=== PATIENT | female | born 1960 | race Caucasian/White ===

== ENCOUNTER → 2016-05-02 | Outpatient (REF) | payer OTHER | LOC: M LAB REF 12:08 | PROVIDERS: ATTEND Physician Assistant Medical | DX: J02.9 Acute pharyngitis, unspecified (principal) ==

== ENCOUNTER → 2016-08-25 | Outpatient (REF) | payer OTHER ==
[2016-08-25 13:27] LABS: ALBUMIN 3.2 GM/DL (3.2-5.2); ALBUMIN/GLOBULIN RATIO 0.91 (1.00-1.93); BILIRUBIN,TOTAL 0.2 MG/DL (0.2-1.0); CALCIUM LEVEL 8.8 MG/DL (8.5-10.1); CREATININE FOR GFR 1.19 MG/DL (0.55-1.02); GLOMERULAR FILTRATION RATE 50.3 (>51); POTASSIUM SERUM 4.7 MEQ/L (3.5-5.1); TOTAL PROTEIN 6.7 GM/DL (6.4-8.2)
== END ==
LOC: M SFHCADAM 07:39
PROVIDERS: ATTEND Physician Assistant Medical
DX: E11.65 Type 2 diabetes mellitus with hyperglycemia (principal)

== ENCOUNTER → 2016-11-08 | Outpatient (REF) | payer OTHER ==
[~2016-11-08] MED LIST: ATOR40TA75 PO; CELE40TA PO; COLA100C5 PO; CRAN250C2 PO; FAMO20TA PO; FIBEPOW PO; FISH100049 PO; FOLI800C PO; GAS180CA7 PO; HYDR12.55 PO; INSUH10VL SC; IRON1TAB PO; LISI-538 PO; LORA10CA PO; METF10004 PO; TOUJ1.2I SC; VITA-182 PO; VITA100072 PO; VITA1CAP40 PO; ZOFR4TAB3 PO; [UNRECOGNIZED DRUG - CODE] PO
== END ==
LOC: M LAB REF 18:58
PROVIDERS: ATTEND Physician Assistant
DX: N39.0 Urinary tract infection, site not specified (principal)

== ENCOUNTER 2016-12-15 14:27 | Emergency (ER) | payer OTHER ==
[~2016-12-15] VITALS: Ht 167.6 cm; Wt 148.6 kg
[2016-12-15] MEDS ORDERED: VITA100072 PO (14:42)
[2016-12-15] MEDS ORDERED: GAS180CA7 PO (14:42)
[2016-12-15] MEDS ORDERED: ATOR40TA75 PO (14:42)
[2016-12-15] MEDS ORDERED: FIBEPOW PO (14:42)
[2016-12-15] MEDS ORDERED: CELE40TA PO (14:42)
[2016-12-15] MEDS ORDERED: IRON1TAB PO (14:42)
[2016-12-15] MEDS ORDERED: CRAN250C2 PO (14:42)
[2016-12-15] MEDS ORDERED: COLA100C5 PO (14:42)
[2016-12-15] MEDS ORDERED: [UNRECOGNIZED DRUG - CODE] PO (14:42)
[2016-12-15] MEDS ORDERED: HYDR12.55 PO (14:42)
[2016-12-15] MEDS ORDERED: FOLI800C PO (14:42)
[2016-12-15] MEDS ORDERED: INSUH10VL SC (14:42)
[2016-12-15] MEDS ORDERED: VITA-182 PO (14:42)
[2016-12-15] MEDS ORDERED: LISI-538 PO (14:42)
[2016-12-15] MEDS ORDERED: METF10004 PO (14:42)
[2016-12-15] MEDS ORDERED: VITA1CAP40 PO (14:42)
[2016-12-15] MEDS ORDERED: FISH100049 PO (14:42)
[2016-12-15] MEDS ORDERED: FAMO20TA PO (14:42)
[2016-12-15] MEDS ORDERED: TOUJ1.2I SC (14:42)
[2016-12-15] MEDS ORDERED: LORA10CA PO (14:42)
[2016-12-15] MEDS ORDERED: ONDANSETRON 4MG/2ML VIAL (J2405) IV ONE (15:45)
[2016-12-15] MEDS ORDERED: NS 1,000 ML IV ONE (15:45)
--- NOTE | 2016-12-15 16:13 | REP ---
Chest two views HISTORY: Abdominal pain Comparison: 04/02/2013 The lungs are clear. The heart is normal in size. The pulmonary vasculature is normal in appearance. The bony structure is intact. IMPRESSION: No acute disease. Signed by Kana Rome MD 12/15/2016 04:04 P
--- NOTE | 2016-12-15 16:17 | REP ---
CT of the abdomen pelvis without IV and oral contrast: Comparison is 07/06/2010. The visualized lung maldonado are unremarkable. The unenhanced hepatic parenchyma, gallbladder, pancreas and spleen are unremarkable. The adrenals are unremarkable. There is no hydronephrosis. No renal calculi or cysts. The study is insensitive for renal masses in the absence of IV contrast. There is no hydronephrosis or hydroureter. There are no bladder calculi. The abdominal aorta is unremarkable. There is no bowel distension or obstruction. Pelvis: The appendix has a normal appearance. The uterus and adnexa are unremarkable. There are multiple phleboliths. The bladder is unremarkable. There is no adenopathy or ascites. The pelvic bowel loops are unremarkable. There is degenerative disc disease in the lumbar spine L1-2. Impression: There is no hydronephrosis. No renal, ureteral or bladder calculi. No ascites, adenopathy or mass. There are multiple phleboliths in the pelvis. No bowel distension. Otherwise, negative CT study of the abdomen and pelvis. Sign taking Signed by Baudilio Bhakta MD 12/15/2016 04:08 P
[2016-12-15 16:33] LABS: LEFT SHIFT POS FLAG; MEAN CORPUSCULAR HEMOGLOBIN 29.2 pg (27.0-33.0); MEAN CORPUSCULAR HGB CONC 32.2 g/dl (32.0-36.5); MEAN CORPUSCULAR VOLUME 90.5 fl (80.0-96.0); RED CELL DISTRIBUTION WIDTH 14.4 % (11.5-14.5); WBC SCAT POS FLAG; WHITE BLOOD COUNT 11.5 10^3/uL (4.0-10.0)
[2016-12-15 16:53] LABS: ALBUMIN 3.2 GM/DL (3.2-5.2); ALBUMIN/GLOBULIN RATIO 0.82 (1.00-1.93); ALKALINE PHOSPHATASE 84 U/L (45-117); ALT/SGPT 87 U/L (12-78); ANION GAP 6 MEQ/L (8-16); AST/SGOT 85 U/L (15-37); BILIRUBIN,DIRECT 0.3 MG/DL (0.0-0.2); BILIRUBIN,TOTAL 0.7 MG/DL (0.2-1.0); BLOOD UREA NITROGEN 32 MG/DL (7-18); CALCIUM LEVEL 9.1 MG/DL (8.5-10.1); CARBON DIOXIDE LEVEL 26 MEQ/L (21-32); CHLORIDE LEVEL 108 MEQ/L (98-107); CREATININE FOR GFR 1.16 MG/DL (0.55-1.02); GLOMERULAR FILTRATION RATE 51.8 (>51); GLUCOSE, FASTING 192 MG/DL (70-105); POTASSIUM SERUM 4.3 MEQ/L (3.5-5.1); SODIUM LEVEL 140 MEQ/L (136-145); TOTAL PROTEIN 7.1 GM/DL (6.4-8.2)
[2016-12-15 17:00] LABS: ADD MANUAL DIFFER YES; DIFF SLIDE NUMBER 279; PLATELET COUNT, AUTOMATED 95 10^3/uL (150-450)
[2016-12-15 17:36] LABS: BANDS 31 % (< 11)
[2016-12-15 17:37] LABS: TOXIC VACUOLATION 1+
--- NOTE | 2016-12-15 18:39 | REP ---
Right upper quadrant sonography: History: Right upper quadrant pain. Comparison study: July 09, 2015. Findings: Scanning through the right upper quadrant of the abdomen demonstrates a normal sized, thin-walled gallbladder without evidence of stone or polyp. Common bile duct is normal measuring 0.6 cm in greatest diameter. No focal liver lesion is seen. Liver size is borderline, mid sagittal dimension 18 cm . There is evidence of diffuse fatty infiltration. No pancreatic abnormality is observed. No right renal abnormality is seen. There is no evidence of ascites. The right kidney measures 12.0 x 6.7 x 5.0 cm. Impression: There is evidence of fatty infiltration of the liver borderline liver size, otherwise unremarkable right upper quadrant sonography. Signed by Heriberto Montes De Oca MD 12/15/2016 06:31 P
[2016-12-15] MEDS ORDERED: ACETAMINOPHEN 325 MG TAB PO ONE (19:15)
[2016-12-15] MEDS ORDERED: ZOFR4TAB3 PO (21:35)
[2016-12-15 21:39] VITALS: BP 163/66
[2016-12-15 22:15] LABS: IMMATURE PLATELET FRACTION % 6.2 % (0.0-9.6)
[2016-12-15 22:16] LABS: PLATELET F 5.9
== END 2016-12-15 21:52 | disposition home or self-care (01) ==
LOC: M ED 14:27
DX: E86.0 Dehydration (principal); F50.9 Eating disorder, unspecified; B34.9 Viral infection, unspecified; E11.9 Type 2 diabetes mellitus without complications; K21.9 Gastro-esophageal reflux disease without esophagitis; E78.5 Hyperlipidemia, unspecified; G47.33 Obstructive sleep apnea (adult) (pediatric); D64.9 Anemia, unspecified; F41.9 Anxiety disorder, unspecified; Z87.442 Personal history of urinary calculi; Z79.84 Long term (current) use of oral hypoglycemic drugs; Z87.891 Personal history of nicotine dependence; Z88.2 Allergy status to sulfonamides; Z79.82 Long term (current) use of aspirin; Z79.4 Long term (current) use of insulin; Z79.899 Other long term (current) drug therapy
CPT/HCPCS: 71020; 74176; 76705; 80048; 80076; 81001; 83605; 83690; 85025; 85049; 85055; 86705; 86709; 86803; 87340; 96361; 96374; 99283; J2405

== ENCOUNTER → 2017-03-23 | Outpatient (REF) | payer OTHER ==
[2017-03-23 13:30] LABS: BASO % 0.5 % (0.0-1.0); EOS # 0.1 10^3/uL (0.0-0.50); EOS % 1.9 % (0.0-3.0); HEMATOCRIT 35.7 % (36.0-47.0); HEMOGLOBIN 10.9 g/dl (12.0-16.0); IMMATURE GRANULOCYTE # 0.1 10^3/uL (0-0); IMMATURE GRANULOCYTE % 0.7 % (0-0); LYMPH # 1.2 10^3/uL (1.5-4.5); LYMPH % 16.2 % (24.0-44.0); MEAN CORPUSCULAR HEMOGLOBIN 26.1 pg (27.0-33.0); MEAN CORPUSCULAR HGB CONC 30.5 g/dl (32.0-36.5); MEAN CORPUSCULAR VOLUME 85.4 fl (80.0-96.0); MONO # 0.7 10^3/uL (0.0-0.8); MONO % 8.9 % (0.0-5.0); NEUTROPHILS # 5.2 10^3/uL (1.8-7.7); NEUTROPHILS % 71.8 % (36.0-66.0); PLATELET COUNT, AUTOMATED 252 10^3/uL (150-450); RED BLOOD COUNT 4.18 10^6/uL (4.00-5.40); RED CELL DISTRIBUTION WIDTH 15.8 % (11.5-14.5); WHITE BLOOD COUNT 7.3 10^3/uL (4.0-10.0)
[2017-03-23 14:04] LABS: ALBUMIN 3.1 GM/DL (3.2-5.2); ALBUMIN/GLOBULIN RATIO 0.82 (1.00-1.93); ALKALINE PHOSPHATASE 117 U/L (45-117); ALT/SGPT 33 U/L (12-78); ANION GAP 8 MEQ/L (8-16); AST/SGOT 23 U/L (7-37); BILIRUBIN,TOTAL 0.2 MG/DL (0.2-1.0); BLOOD UREA NITROGEN 30 MG/DL (7-18); CALCIUM LEVEL 9.5 MG/DL (8.5-10.1); CARBON DIOXIDE LEVEL 26 MEQ/L (21-32); CHLORIDE LEVEL 106 MEQ/L (98-107); CHOLESTEROL LEVEL 139 MG/DL (<200); CHOLESTEROL RISK RATIO 3.657 (<5); CREATININE FOR GFR 0.93 MG/DL (0.55-1.02); FERRITIN 146 NG/ML (8-252); GLOMERULAR FILTRATION RATE > 60.0 (>51); GLUCOSE, FASTING 262 MG/DL (70-105); HDL CHOLESTEROL 38 MG/DL (>40); IRON (FE) 42 UG/DL (50-170); LDL CHOLESTEROL 52.8 MG/DL (<100); NON-HDL-C 101 MG/DL; PERCENT SATURATION 15.3 % (13.2-45.0); SODIUM LEVEL 140 MEQ/L (136-145); TOTAL IRON BINDING CAPACITY 275 UG/DL (250-450); TOTAL PROTEIN 6.9 GM/DL (6.4-8.2); TRIGLYCERIDES LEVEL 241 MG/DL (<150)
[2017-03-23 14:12] LABS: POTASSIUM SERUM 5.2 MEQ/L (3.5-5.1)
[2017-03-23 14:54] LABS: TOTAL 25(OH) VITAMIN D 37.8 NG/ML (30.0-100.0)
[2017-03-23 15:28] LABS: ESTIMATED AVERAGE GLUCOSE 266 MG/DL (60-110); HEMOGLOBIN A1c 10.9 %
[2017-03-23 21:25] LABS: CREATININE, URINE 77.5 MG/DL; MALB URINE SIEMENS 21.2 MG/L; MAU/CREAT RATIO 27.3 MCG/MG (0.0-30.0)
== END ==
LOC: M SFHCADAM 08:15
DX: I10 Essential (primary) hypertension (principal); F34.1 Dysthymic disorder; E55.9 Vitamin D deficiency, unspecified; E11.65 Type 2 diabetes mellitus with hyperglycemia; D50.9 Iron deficiency anemia, unspecified

== ENCOUNTER → 2017-09-14 | Outpatient (REF) | payer OTHER ==
[2017-09-14 15:51] LABS: BASO # 0.1 10^3/uL (0.0-0.2); BASO % 0.8 % (0.0-1.0); EOS # 0.2 10^3/uL (0.0-0.50); EOS % 2.7 % (0.0-3.0); HEMATOCRIT 35.2 % (36.0-47.0); HEMOGLOBIN 11.6 g/dl (12.0-15.5); IMMATURE GRANULOCYTE % 0.8 % (0-3.0); LYMPH # 1.9 10^3/uL (1.5-4.5); LYMPH % 30.3 % (24.0-44.0); MEAN CORPUSCULAR HEMOGLOBIN 28.5 pg (27.0-33.0); MEAN CORPUSCULAR VOLUME 86.5 fl (80.0-96.0); MONO # 0.6 10^3/uL (0.0-0.8); MONO % 10.1 % (0.0-5.0); NEUTROPHILS # 3.4 10^3/uL (1.8-7.7); NEUTROPHILS % 55.3 % (36.0-66.0); PLATELET COUNT, AUTOMATED 195 10^3/uL (150-450); RED BLOOD COUNT 4.07 10^6/uL (4.00-5.40); RED CELL DISTRIBUTION WIDTH 13.6 % (11.5-14.5); WHITE BLOOD COUNT 6.2 10^3/uL (4.0-10.0)
[2017-09-14 16:02] LABS: ALBUMIN 3.3 GM/DL (3.2-5.2); ALBUMIN/GLOBULIN RATIO 0.94 (1.00-1.93); ALKALINE PHOSPHATASE 125 U/L (45-117); ALT/SGPT 66 U/L (12-78); ANION GAP 9 MEQ/L (8-16); AST/SGOT 39 U/L (7-37); BILIRUBIN,TOTAL 0.2 MG/DL (0.2-1.0); BLOOD UREA NITROGEN 31 MG/DL (7-18); CARBON DIOXIDE LEVEL 23 MEQ/L (21-32); CHLORIDE LEVEL 112 MEQ/L (98-107); CHOLESTEROL LEVEL 128 MG/DL (<200); CREATININE FOR GFR 1.02 MG/DL (0.55-1.30); FERRITIN 131 NG/ML (8-252); GLOMERULAR FILTRATION RATE 59.9 (>51); GLUCOSE, FASTING 204 MG/DL (70-100); HDL CHOLESTEROL 40 MG/DL (>40); IRON (FE) 79 UG/DL (50-170); NON-HDL-C 88 MG/DL; PERCENT SATURATION 26.9 % (13.2-45.0); POTASSIUM SERUM 4.7 MEQ/L (3.5-5.1); SODIUM LEVEL 144 MEQ/L (136-145); TOTAL IRON BINDING CAPACITY 294 UG/DL (250-450); TOTAL PROTEIN 6.8 GM/DL (6.4-8.2); TRIGLYCERIDES LEVEL 175 MG/DL (<150)
[2017-09-14 16:09] LABS: ESTIMATED AVERAGE GLUCOSE 229 MG/DL (60-110); HEMOGLOBIN A1c 9.6 %
[2017-09-14 16:46] LABS: TOTAL 25(OH) VITAMIN D 36.3 NG/ML (30.0-100.0)
== END ==
LOC: M SFHCADAM 13:15
DX: D50.9 Iron deficiency anemia, unspecified (principal); E78.1 Pure hyperglyceridemia; E11.65 Type 2 diabetes mellitus with hyperglycemia; E55.9 Vitamin D deficiency, unspecified

== ENCOUNTER 2017-12-28 14:52 | Emergency (ER) | payer OTHER ==
[2017-12-28 15:37] LABS: BASO % 0.5 % (0.0-1.0); EOS # 0.2 10^3/uL (0.0-0.50); HEMATOCRIT 37.5 % (36.0-47.0); HEMOGLOBIN 11.9 g/dl (12.0-15.5); IMMATURE GRANULOCYTE % 0.4 % (0-3.0); LYMPH # 1.7 10^3/uL (1.5-4.5); LYMPH % 21.8 % (24.0-44.0); MEAN CORPUSCULAR HEMOGLOBIN 28.5 pg (27.0-33.0); MEAN CORPUSCULAR HGB CONC 31.7 g/dl (32.0-36.5); MEAN CORPUSCULAR VOLUME 89.9 fl (80.0-96.0); MONO # 0.6 10^3/uL (0.0-0.8); MONO % 7.2 % (0.0-5.0); NEUTROPHILS # 5.4 10^3/uL (1.8-7.7); NEUTROPHILS % 68.1 % (36.0-66.0); PLATELET COUNT, AUTOMATED 227 10^3/uL (150-450); RED BLOOD COUNT 4.17 10^6/uL (4.00-5.40); RED CELL DISTRIBUTION WIDTH 13.4 % (11.5-14.5)
[2017-12-28 15:59] LABS: ANION GAP 9 MEQ/L (8-16); BLOOD UREA NITROGEN 45 MG/DL (7-18); CALCIUM LEVEL 9.3 MG/DL (8.5-10.1); CARBON DIOXIDE LEVEL 20 MEQ/L (21-32); CHLORIDE LEVEL 112 MEQ/L (98-107); CREATININE FOR GFR 1.27 MG/DL (0.55-1.30); GLOMERULAR FILTRATION RATE 46.5 (>51); GLUCOSE, FASTING 260 MG/DL (70-100); POTASSIUM SERUM 5.3 MEQ/L (3.5-5.1); SODIUM LEVEL 141 MEQ/L (136-145)
[2017-12-28] MEDS: ONDANSETRON 4MG/2ML VIAL (J2405) IV (16:06)
[2017-12-28] MEDS: NS 1,000 ML IV (16:06)
[2017-12-28 16:15] LABS: ALKALINE PHOSPHATASE 130 U/L (45-117); ALT/SGPT 44 U/L (12-78); AST/SGOT 27 U/L (7-37); BILIRUBIN,TOTAL 0.2 MG/DL (0.2-1.0); CPK CREATINE PHOSPHOKINASE 147 U/L (26-192); MB/CK RELATIVE INDEX 1.63 (< OR =4)
[2017-12-28 16:16] LABS: ALBUMIN 3.5 GM/DL (3.2-5.2); ALBUMIN/GLOBULIN RATIO 0.88 (1.00-1.93); BILIRUBIN,DIRECT < 0.1 MG/DL (0.0-0.2); LIPASE 245 U/L (73-393); TOTAL PROTEIN 7.5 GM/DL (6.4-8.2); TROPONIN I < 0.02 NG/ML (< 0.10)
[2017-12-28 17:21] LABS: BEDSIDE GLUCOSE 213 MG/DL (70-105)
[2017-12-28] MEDS: HumuLIN R (REGULAR) INSULIN (NovoLIN R) **100U/ML** PER UNIT SC (17:21)
[2017-12-28 18:03] LABS: KETONE, URINE AUTO RFX NEGATIVE (NEGATIVE); RBC, URINE AUTO RFX 3 /HPF (0-3); SPECIFIC GRAVITY UR AUTO RFX 1.018 (1.002-1.035); SQUAM EPITHELIAL CELL UR AURFX 1 /HPF (0-6)
[2017-12-28 18:14] LABS: LEUKOCYTE ESTERASE UR AUTO RFX 1+ (NEGATIVE); NITRITE, URINE AUTO RFX POSITIVE (NEGATIVE); WBC, URINE AUTO RFX 21 /HPF (0-3)
[2017-12-28 19:05] LABS: BEDSIDE GLUCOSE 167 MG/DL (70-105)
[2017-12-28] MEDS: SOD POLYSTYRENE SULFONATE SUSP 15 GM/60 ML UD PO (19:10)
[2017-12-28] MEDS: NITROFURANTOIN (MACROBID) 100 MG CAP PO (19:10)
[2017-12-28] MEDS ORDERED: CIPROFLOXACIN 500 MG TAB PO (20:00)
== END 2017-12-28 19:17 | disposition home or self-care (01) ==
LOC: M ED 14:52
DX: R11.2 Nausea with vomiting, unspecified (principal); E86.0 Dehydration; N39.0 Urinary tract infection, site not specified; K76.0 Fatty (change of) liver, not elsewhere classified; I10 Essential (primary) hypertension; E78.00 Pure hypercholesterolemia, unspecified; G47.30 Sleep apnea, unspecified; E11.9 Type 2 diabetes mellitus without complications; Z87.440 Personal history of urinary (tract) infections; Z88.2 Allergy status to sulfonamides; Z79.899 Other long term (current) drug therapy; Z79.84 Long term (current) use of oral hypoglycemic drugs; Z79.82 Long term (current) use of aspirin
CPT/HCPCS: J2405

== ENCOUNTER → 2018-01-29 | Outpatient (REF) | payer OTHER | LOC: M LAB REF 19:56 | DX: N39.0 Urinary tract infection, site not specified (principal) ==

== ENCOUNTER → 2018-03-08 | Outpatient (REF) | payer OTHER ==
[~2018-03-08] MED LIST changes: +ASPI1TAB21 PO; +MACR100C43 PO; +TRUL0.5I; -VITA1CAP40 PO; +VITA50005 PO; +ZOFR4TAB14 PO; -ZOFR4TAB3 PO; -[UNRECOGNIZED DRUG - CODE] PO
[2018-03-08 19:41] LABS: ALBUMIN 3.6 GM/DL (3.2-5.2); BILIRUBIN,TOTAL 0.3 MG/DL (0.2-1.0); CALCIUM LEVEL 10.3 MG/DL (8.5-10.1); CHOLESTEROL RISK RATIO 3.685 (<5); CREATININE FOR GFR 1.41 MG/DL (0.55-1.30); GLOMERULAR FILTRATION RATE 41.1 (>51); MAGNESIUM LEVEL 1.3 MG/DL (1.8-2.4); POTASSIUM SERUM 4.9 MEQ/L (3.5-5.1); TOTAL PROTEIN 6.9 GM/DL (6.4-8.2)
[2018-03-08 19:48] LABS: BASO % 0.4 % (0.0-1.0); EOS # 0.2 10^3/uL (0.0-0.50); EOS % 1.9 % (0.0-3.0); HEMATOCRIT 35.5 % (36.0-47.0); HEMOGLOBIN 11.7 g/dl (12.0-15.5); LYMPH # 2.3 10^3/uL (1.5-4.5); LYMPH % 22.7 % (24.0-44.0); MEAN CORPUSCULAR HEMOGLOBIN 28.9 pg (27.0-33.0); MEAN CORPUSCULAR VOLUME 87.7 fl (80.0-96.0); MONO # 0.9 10^3/uL (0.0-0.8); MONO % 8.5 % (0.0-5.0); NEUTROPHILS # 6.6 10^3/uL (1.8-7.7); NEUTROPHILS % 66.1 % (36.0-66.0); PLATELET COUNT, AUTOMATED 211 10^3/uL (150-450); RED BLOOD COUNT 4.05 10^6/uL (4.00-5.40)
[2018-03-08 19:49] LABS: TOTAL 25(OH) VITAMIN D 23.5 NG/ML (30.0-100.0)
[2018-03-08 20:05] LABS: HEMOGLOBIN A1c 9.1 %
[2018-03-08 20:06] LABS: MALB URINE SIEMENS 25.2 MG/L; MAU/CREAT RATIO 24.2 MCG/MG (0.0-30.0)
== END ==
LOC: M SFHCADAM 13:07
PROVIDERS: ATTEND Physician Assistant Medical
DX: I10 Essential (primary) hypertension (principal); E55.9 Vitamin D deficiency, unspecified; E11.65 Type 2 diabetes mellitus with hyperglycemia; D50.9 Iron deficiency anemia, unspecified

== ENCOUNTER → 2018-04-03 | Outpatient (REF) | payer OTHER ==
[2018-04-06 17:41] LABS: HPV HYBRID CAPTURE II Negative (Negative)
== END ==
LOC: M SFHCWAGY 09:56
PROVIDERS: ATTEND Nurse Practitioner Women's Health
DX: Z12.4 Encounter for screening for malignant neoplasm of cervix (principal)

== ENCOUNTER → 2018-04-03 | Outpatient (CLI) | payer OTHER ==
--- NOTE | 2018-04-03 11:40 | REPMRS ---
Patient History The patient states she had a clinical breast exam in 03/23 Patient is postmenopausal. No known family history of cancer. 3D TOMOSYNTHESIS WAS PERFORMED. Digital Woman Screen Mammo: April 03, 2018 - Exam #: [id number] Bilateral MLO, CC, and XCCL view(s) were taken. Technologist: Irlanda Chen, Technologist Prior study comparison: December 04, 2014, digital woman screen mammo performed at [facility]. June 13, 2013, digital woman screen mammo performed at [facility]. FINDINGS: There are scattered fibroglandular densities. There has been no change in the appearance of the mammogram from the prior studies. There is a mild amount of residual fibroglandular tissue which is fairly symmetric. There is no interval development of dominant mass, architectural distortion, or clustered microcalcification suggestive of malignancy. Assessment: BI-RADS/ACR category 1 mammogram. Negative Mammogram. Recommendation Routine screening mammogram in 1 year (for women over age 40). This mammogram was interpreted with the aid of an FDA-approved computer-aided dectection system. Electronically Signed By: Baudilio Davidson MD 04/03/18 [id number]
== END ==
LOC: M WHC 09:30
PROVIDERS: ATTEND Nurse Practitioner Women's Health
DX: Z12.31 Encounter for screening mammogram for malignant neoplasm of breast (principal); Z78.0 Asymptomatic menopausal state

== ENCOUNTER → 2018-04-18 | Outpatient (REF) | payer OTHER | LOC: M SFHCADAM 08:34 | PROVIDERS: ATTEND Physician Assistant Medical | DX: E83.42 Hypomagnesemia (principal) ==

== ENCOUNTER → 2018-04-23 | Outpatient (REF) | payer OTHER ==
[2018-04-23 20:41] LABS: BASO # 0.1 10^3/uL (0.0-0.2); BASO % 0.8 % (0.0-1.0); EOS # 0.3 10^3/uL (0.0-0.50); EOS % 3.9 % (0.0-3.0); HEMATOCRIT 35.7 % (36.0-47.0); HEMOGLOBIN 11.3 g/dl (12.0-15.5); LYMPH # 2.1 10^3/uL (1.5-4.5); LYMPH % 32.2 % (24.0-44.0); MEAN CORPUSCULAR HEMOGLOBIN 28.3 pg (27.0-33.0); MEAN CORPUSCULAR HGB CONC 31.7 g/dl (32.0-36.5); MEAN CORPUSCULAR VOLUME 89.3 fl (80.0-96.0); MONO # 0.8 10^3/uL (0.0-0.8); MONO % 11.3 % (0.0-5.0); NEUTROPHILS # 3.4 10^3/uL (1.8-7.7); NEUTROPHILS % 51.3 % (36.0-66.0); PLATELET COUNT, AUTOMATED 212 10^3/uL (150-450); WHITE BLOOD COUNT 6.6 10^3/uL (4.0-10.0)
== END ==
LOC: M LABDRWAD 19:18
PROVIDERS: ATTEND Physician Assistant Medical
DX: J06.9 Acute upper respiratory infection, unspecified (principal)

== ENCOUNTER → 2018-04-30 | Outpatient (CLI) | payer OTHER ==
--- NOTE | 2018-04-30 11:15 | REP ---
Low-dose noncontrast chest CT study: History: Lung cancer screening. Findings: There is a 3 mm noncalcified nodule in the right lower lobe on page 63 of 109 in today's study. This is unchanged from December 15, 2016. There is a 4 mm noncalcified pulmonary nodule in the left upper lobe anteriorly and medially on page 49. There is a 4 mm noncalcified nodule in the left upper lobe on page 42. There is a 3 mm noncalcified nodule in the left upper lobe on page 33. There is a noncalcified 5 mm nodule in the right upper lobe on page 25. Impression: There are multiple noncalcified subcentimeter pulmonary nodules. The largest of these measures 5 mm. Lung-RADS category II benign findings. Repeat screening in 1 year. Electronically Signed by Heriberto Montes De Oca MD 04/30/2018 07:28 P
== END ==
LOC: M RAD 08:21
PROVIDERS: ATTEND Physician Assistant Medical
DX: Z12.2 Encounter for screening for malignant neoplasm of respiratory organs (principal); F17.211 Nicotine dependence, cigarettes, in remission; R91.8 Other nonspecific abnormal finding of lung field

== ENCOUNTER → 2018-05-06 | Outpatient (CLI) | payer OTHER ==
--- NOTE | 2018-05-06 20:30 | REP ---
Clinical: Stage III chronic renal disease. Technique: Real time mcdowell scale with a curved array of. Findings: The bilateral kidneys are normal in reniform shape and echogenicity without hydronephrosis, nephrolithiasis, cystic or renal mass lesion. No perinephric fluid collection. Right kidney measures 9.4 x 6.1 x 5.4 cm. Left kidney measures 12.0 x 6.1 x 5.5 cm with suggestions for duplicated system. The bladder is collapsed. Impression: No evidence for hydronephrosis. 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 Electronically Signed by Marcos Wei MD 05/06/2018 08:22 P
== END ==
LOC: M RAD 12:05
PROVIDERS: ATTEND Physician Assistant Medical
DX: N18.3 Chronic kidney disease, stage 3 (moderate) (principal)

== ENCOUNTER → 2018-05-09 | Outpatient (REF) | payer OTHER | LOC: M SFHCADAM 08:32 | PROVIDERS: ATTEND Physician Assistant Medical | DX: E83.42 Hypomagnesemia (principal) ==

== ENCOUNTER → 2018-06-17 | Outpatient (REF) | payer OTHER ==
[~2018-06-17] MED LIST changes: +VITA100018 PO; -VITA100072 PO
== END ==
LOC: M LAB REF 12:18
PROVIDERS: ATTEND Physician Assistant
DX: R30.0 Dysuria (principal)

== ENCOUNTER → 2019-04-28 | Outpatient (CLI) | payer OTHER ==
[~2019-04-28] MED LIST changes: -ASPI1TAB21 PO; +ASPI325T58 PO; +DEXT350P PO; -FIBEPOW PO
--- NOTE | 2019-04-28 12:47 | REP ---
BILATERAL SCREENING DIGITAL MAMMOGRAM WITH 3D TOMOSYNTHESIS: There are no palpable abnormalities or other breast complaints. The the patient states she had a clinical breast examination April,. The Tyrer-Cuzick Lifetime Breast Cancer Risk Score is: 6.1% . Comparison is 12/14/2014. There are scattered areas of fibroglandular density. There is no dominant mass, micro calcific cluster or architectural distortion that would indicate malignancy. There are no additional findings on 3D tomosynthesiss. There is no change from the prior study. Impression: BIRADS/ACR category 1 mammogram. Negative. Recommendation: Routine annual screening mammography. This mammogram was interpreted with the aid of a FDA approved computer-aided detection system. A. Negative mammogram reports should not delay biopsy if a dominant or clinically suspicious mass is present. B. Not all breast cancers are identified by mammography or tomosynthesis. C. Adenosis and dense breasts may obscure an underlying neoplasm. Patient letter M1. Electronically Signed by Baudilio Bhakta MD 04/28/2019 12:39 P
== END ==
LOC: M WHC 10:33
PROVIDERS: ATTEND Nurse Practitioner Women's Health
DX: Z12.31 Encounter for screening mammogram for malignant neoplasm of breast (principal)

== ENCOUNTER → 2020-02-19 | Outpatient (REF) | payer OTHER ==
[2020-02-19 13:52] LABS: BASO % 0.7 % (0.0-1.0); EOS # 0.1 10^3/uL (0.0-0.5); EOS % 2.4 % (0.0-3.0); HEMATOCRIT 37.1 % (36.0-47.0); HEMOGLOBIN 11.4 g/dl (12.0-15.5); LYMPH # 1.7 10^3/uL (1.5-5.0); LYMPH % 28.9 % (24.0-44.0); MEAN CORPUSCULAR HEMOGLOBIN 27.5 pg (27.0-33.0); MEAN CORPUSCULAR HGB CONC 30.7 g/dl (32.0-36.5); MEAN CORPUSCULAR VOLUME 89.6 fl (80.0-96.0); MONO # 0.6 10^3/uL (0.0-0.8); MONO % 10.6 % (0.0-5.0); NEUTROPHILS # 3.3 10^3/uL (1.5-8.5); NEUTROPHILS % 56.1 % (36.0-66.0); PLATELET COUNT, AUTOMATED 156 10^3/uL (150-450); RED BLOOD COUNT 4.14 10^6/uL (4.00-5.40)
[2020-02-19 14:29] LABS: ALBUMIN 3.2 GM/DL (3.2-5.2); BILIRUBIN,TOTAL 0.3 MG/DL (0.2-1.0); CALCIUM LEVEL 9.8 MG/DL (8.5-10.1); CREATININE FOR GFR 1.16 MG/DL (0.55-1.30); FREE T4 1.01 NG/DL (0.76-1.46); GLOMERULAR FILTRATION RATE 51.1 (>51); PERCENT SATURATION 29.2 % (13.2-45.0); POTASSIUM SERUM 4.7 MEQ/L (3.5-5.1); THYROID STIMULATING HORMONE 5.85 uIU/ML (0.358-3.740); TOTAL PROTEIN 6.4 GM/DL (6.4-8.2)
[2020-02-19 14:32] LABS: TOTAL 25(OH) VITAMIN D 23.1 NG/ML (30.0-100.0)
[2020-02-19 15:30] LABS: HEMOGLOBIN A1c 9.5 %
[2020-02-19 19:11] LABS: MALB URINE SIEMENS 91.2 MG/L; MAU/CREAT RATIO 66.5 MCG/MG (0.0-30.0)
== END ==
LOC: M SFHCPLAZ 09:22 → M SFHCADAM 09:28
PROVIDERS: ATTEND Physician Assistant Medical
DX: E11.65 Type 2 diabetes mellitus with hyperglycemia (principal); I10 Essential (primary) hypertension; E78.1 Pure hyperglyceridemia; D50.9 Iron deficiency anemia, unspecified

== ENCOUNTER → 2020-02-19 | Outpatient (REF) | payer OTHER ==
[2020-02-19 14:56] LABS: ALBUMIN 3.2 GM/DL (3.2-5.2); BILIRUBIN,TOTAL 0.2 MG/DL (0.2-1.0); CALCIUM LEVEL 9.6 MG/DL (8.5-10.1); CHOLESTEROL RISK RATIO 3.324 (<5); CREATININE FOR GFR 1.17 MG/DL (0.55-1.30); FREE T4 0.97 NG/DL (0.76-1.46); GLOMERULAR FILTRATION RATE 50.6 (>51); POTASSIUM SERUM 4.7 MEQ/L (3.5-5.1); THYROID STIMULATING HORMONE 5.75 uIU/ML (0.358-3.740); TOTAL PROTEIN 6.6 GM/DL (6.4-8.2)
[2020-02-19 15:05] LABS: TOTAL 25(OH) VITAMIN D 21.3 NG/ML (30.0-100.0)
[2020-02-19 16:30] LABS: HEMOGLOBIN A1c 9.5 %
[2020-02-19 19:10] LABS: MALB URINE SIEMENS 93.1 MG/L; MAU/CREAT RATIO 66.9 MCG/MG (0.0-30.0)
[2020-02-20 07:08] LABS: LDL DIRECT 52 mg/dL (0-99)
== END ==
LOC: M LABDRWAD 13:20
PROVIDERS: ATTEND Nurse Practitioner Family
DX: E55.9 Vitamin D deficiency, unspecified (principal); E11.65 Type 2 diabetes mellitus with hyperglycemia; Z79.4 Long term (current) use of insulin

== ENCOUNTER → 2020-03-30 | Outpatient (CLI) | payer MEDICAID, OTHER ==
[~2020-03-30] MED LIST changes: -LISI-538 PO; +LISI20TA33 PO
--- NOTE | 2020-03-31 10:20 | REP ---
INDICATION: HX NICOTINE DEPENDENCE COMPARISON: 04/30/2018 TECHNIQUE: Axial noncontrast images from the thoracic inlet to the upper abdomen using low-dose lung screening technique (LDCT). FINDINGS: Bilateral lung maldonado are well aerated. The few previously identified noncalcified nodules measuring up to 5 mm either remains stable or now demonstrates small central calcification. No new suspicious nodule or mass lesion appreciated. No consolidation. No effusion. No pneumothorax. Tracheobronchial tree is patent. IMPRESSION: Lung-RADS category 2. Stable scattered nodules up to 5 mm again noted. No new suspicious nodules identified. Management recommendations include annual low-dose CT surveillance. <Electronically signed by Marcos Wei > 03/31/20 [id number]
== END ==
LOC: M RAD 13:02
PROVIDERS: ATTEND Physician Assistant Medical
DX: Z12.2 Encounter for screening for malignant neoplasm of respiratory organs (principal); R91.1 Solitary pulmonary nodule; Z87.891 Personal history of nicotine dependence

== ENCOUNTER → 2020-06-01 | Outpatient (CLI) | payer MEDICAID, OTHER ==
--- NOTE | 2020-06-01 13:38 | REPMRS ---
Patient History The patient states she has not had a clinical breast exam in over a year. No known family history of cancer. Digital Woman Screen Mammo: June 01, 2020 - Exam #: [id number] Bilateral CC and MLO view(s) were taken. Technologist: Izabela Null, Technologist Prior study comparison: April 28, 2019, bilateral digital woman screen mammo performed at [facility]. April 03, 2018, bilateral digital woman screen mammo performed at [facility]. December 04, 2014, digital woman screen mammo performed at [facility]. FINDINGS: The breast tissue is almost entirely fat. The Volpara volumetric breast density category is: A. There has been no change in the appearance of the mammogram from the prior studies. There is no interval development of dominant mass, architectural distortion, or grouped microcalcification typical of malignancy. 3-D tomosynthesis shows no additional findings. Assessment: BI-RADS/ACR category 1 mammogram. Negative Mammogram. Recommendation Routine screening mammogram of both breasts in 1 year (for women over age 40). This patient's [facility] Lifetime Breast Cancer RIsk is estimated at 5.9 %. This mammogram was interpreted with the aid of an FDA-approved computer-aided dectection system. Electronically Signed By: Sukh Montes De Oca MD 06/01/20 1805
== END ==
LOC: M WHC 11:19
PROVIDERS: ATTEND Nurse Practitioner Women's Health
DX: Z12.31 Encounter for screening mammogram for malignant neoplasm of breast (principal)

== ENCOUNTER → 2020-07-07 | Outpatient (REF) | payer OTHER ==
[2020-07-07 12:35] LABS: BASO # 0.1 10^3/uL (0.0-0.2); BASO % 0.7 % (0.0-1.0); EOS # 0.2 10^3/uL (0.0-0.5); EOS % 2.8 % (0.0-3.0); HEMATOCRIT 35.6 % (36.0-47.0); LYMPH # 1.5 10^3/uL (1.5-5.0); LYMPH % 21.9 % (24.0-44.0); MEAN CORPUSCULAR HEMOGLOBIN 28.3 pg (27.0-33.0); MEAN CORPUSCULAR HGB CONC 30.9 g/dl (32.0-36.5); MEAN CORPUSCULAR VOLUME 91.5 fl (80.0-96.0); MONO # 0.5 10^3/uL (0.0-0.8); MONO % 7.7 % (2.0-8.0); NEUTROPHILS # 4.7 10^3/uL (1.5-8.5); NEUTROPHILS % 66.2 % (36.0-66.0); PLATELET COUNT, AUTOMATED 173 10^3/uL (150-450); RED BLOOD COUNT 3.89 10^6/uL (4.00-5.40)
[2020-07-07 13:04] LABS: HEMOGLOBIN A1c 8.1 %
[2020-07-07 13:15] LABS: ALBUMIN 3.3 GM/DL (3.2-5.2); BILIRUBIN,TOTAL 0.2 MG/DL (0.2-1.0); CALCIUM LEVEL 9.7 MG/DL (8.5-10.1); CHOLESTEROL RISK RATIO 3.075 (<5); CREATININE FOR GFR 1.21 MG/DL (0.55-1.30); FREE T4 1.03 NG/DL (0.76-1.46); GLOMERULAR FILTRATION RATE 48.7 (>51); PERCENT SATURATION 20.9 % (13.2-45.0); POTASSIUM SERUM 5.1 MEQ/L (3.5-5.1); THYROID STIMULATING HORMONE 1.78 uIU/ML (0.358-3.740); TOTAL 25(OH) VITAMIN D 33.7 NG/ML (30.0-100.0); TOTAL PROTEIN 6.6 GM/DL (6.4-8.2)
== END ==
LOC: M SFHCADAM 08:26
PROVIDERS: ATTEND Physician Assistant Medical
DX: I10 Essential (primary) hypertension (principal); E11.65 Type 2 diabetes mellitus with hyperglycemia; E55.9 Vitamin D deficiency, unspecified; F34.1 Dysthymic disorder; D50.9 Iron deficiency anemia, unspecified; E03.9 Hypothyroidism, unspecified

== ENCOUNTER → 2020-12-23 | Outpatient (REF) | payer OTHER ==
[2020-12-23 14:18] LABS: MALB URINE SIEMENS 25.6 MG/L; MAU/CREAT RATIO 22.8 MCG/MG (0.0-30.0)
[2020-12-23 14:33] LABS: ALBUMIN 3.3 GM/DL (3.2-5.2); ALT/SGPT 47 U/L (12-78); BILIRUBIN,TOTAL 0.6 MG/DL (0.2-1.0); BLOOD UREA NITROGEN 33 MG/DL (7-18); CALCIUM LEVEL 9.2 MG/DL (8.5-10.1); CARBON DIOXIDE LEVEL 25 MEQ/L (21-32); CHLORIDE LEVEL 108 MEQ/L (98-107); FREE T4 0.99 NG/DL (0.76-1.46); GLOMERULAR FILTRATION RATE 44.8 (>51); GLUCOSE, FASTING 202 MG/DL (70-100); POTASSIUM SERUM 5.2 MEQ/L (3.5-5.1); SODIUM LEVEL 140 MEQ/L (136-145); THYROID PEROXIDASE ANTIBODY < 28.0 U/ML (<60.0); TOTAL 25(OH) VITAMIN D 32.9 NG/ML (30.0-100.0); TOTAL PROTEIN 6.6 GM/DL (6.4-8.2); TOTAL T3 101.4 NG/DL (60.0-181.0); VITAMIN B12 LEVEL > 2000 PG/ML (247-911)
[2020-12-23 14:36] LABS: HEMOGLOBIN A1c 7.9 %
[2020-12-24 08:12] LABS: LDL DIRECT 54 mg/dL (0-99)
== END ==
LOC: M LABDRWAD 12:40
PROVIDERS: ATTEND Internal Medicine Endocrinology, Diabetes & Metabolism
DX: E11.69 Type 2 diabetes mellitus with other specified complication (principal); E66.9 Obesity, unspecified; E55.9 Vitamin D deficiency, unspecified

== ENCOUNTER → 2020-12-31 | Outpatient (CLI) | payer OTHER ==
--- NOTE | 2020-12-31 11:23 | REP ---
INDICATION: FATTY LIVER DZ. COMPARISON: 12/28/2017. TECHNIQUE: Real-time sonographic evaluation of right upper quadrant performed. FINDINGS: The gallbladder demonstrates no evidence of intraluminal sludge or calculi, wall thickening or pericholecystic fluid. There is no intrahepatic or extrahepatic biliary dilatation, common bile duct measures 3 mm in maximum diameter. The liver is enlarged with a length of approximately 22 cm. There is diffuse increased echotexture compatible with diffuse fibrofatty infiltration. No gross liver mass is seen. Pancreas is not seen due to overlying bowel gas. The right kidney demonstrates no hydronephrosis, with a normal size of 10.6 cm in length. No free fluid is seen. IMPRESSION: Hepatomegaly with diffuse fibrofatty infiltration of the liver. No gross liver mass. <Electronically signed by Baudilio Davidson > 12/31/20 1110
== END ==
LOC: M RAD 07:39
PROVIDERS: ATTEND Physician Assistant Medical
DX: K76.0 Fatty (change of) liver, not elsewhere classified (principal); R16.0 Hepatomegaly, not elsewhere classified

== ENCOUNTER → 2021-04-25 | Outpatient (CLI) | payer OTHER | LOC: M RAD 10:47 | PROVIDERS: ATTEND Physician Assistant Medical | DX: Z12.2 Encounter for screening for malignant neoplasm of respiratory organs (principal); R91.8 Other nonspecific abnormal finding of lung field; J84.9 Interstitial pulmonary disease, unspecified; F17.200 Nicotine dependence, unspecified, uncomplicated; I25.10 Atherosclerotic heart disease of native coronary artery without angina pectoris ==

== ENCOUNTER → 2021-05-09 | Outpatient (REF) | payer OTHER | LOC: M SFHCADAM 16:20 | PROVIDERS: ATTEND Physician Assistant Medical | DX: R50.9 Fever, unspecified (principal); R09.89 Other specified symptoms and signs involving the circulatory and respiratory systems ==

== ENCOUNTER → 2021-06-20 | Outpatient (REF) | payer OTHER ==
[2021-06-20 12:53] LABS: BASO # 0.1 10^3/uL (0.0-0.2); BASO % 0.9 % (0.0-1.0); EOS # 0.2 10^3/uL (0.0-0.5); EOS % 2.4 % (0.0-3.0); HEMATOCRIT 34.4 % (36.0-47.0); HEMOGLOBIN 10.7 g/dl (12.0-15.5); LYMPH # 1.9 10^3/uL (1.5-5.0); LYMPH % 21.4 % (24.0-44.0); MEAN CORPUSCULAR HEMOGLOBIN 28.9 pg (27.0-33.0); MEAN CORPUSCULAR HGB CONC 31.1 g/dl (32.0-36.5); MONO # 0.7 10^3/uL (0.0-0.8); MONO % 8.3 % (2.0-8.0); NEUTROPHILS # 5.7 10^3/uL (1.5-8.5); NEUTROPHILS % 64.7 % (36.0-66.0); PLATELET COUNT, AUTOMATED 181 10^3/uL (150-450); WHITE BLOOD COUNT 8.8 10^3/uL (4.0-10.0)
[2021-06-20 13:18] LABS: HEMOGLOBIN A1c 7.9 %
[2021-06-20 13:20] LABS: ALBUMIN 3.3 GM/DL (3.2-5.2); BILIRUBIN,TOTAL 0.2 MG/DL (0.2-1.0); CALCIUM LEVEL 9.4 MG/DL (8.5-10.1); CHOLESTEROL RISK RATIO 3.1 (<5); CREATININE FOR GFR 1.03 MG/DL (0.55-1.30); GLOMERULAR FILTRATION RATE 58.4 (>51); PERCENT SATURATION 24.1 % (13.2-45.0); POTASSIUM SERUM 5.5 MEQ/L (3.5-5.1); THYROID STIMULATING HORMONE 2.5 uIU/ML (0.358-3.740); TOTAL PROTEIN 6.4 GM/DL (6.4-8.2)
[2021-06-20 13:22] LABS: TOTAL 25(OH) VITAMIN D 24.2 NG/ML (30.0-100.0)
[2021-06-20 13:23] LABS: FOLATE 18.5 NG/ML
== END ==
LOC: M SFHCADAM 08:34
PROVIDERS: ATTEND Physician Assistant Medical
DX: E66.01 Morbid (severe) obesity due to excess calories (principal); E11.65 Type 2 diabetes mellitus with hyperglycemia; E78.1 Pure hyperglyceridemia; D50.9 Iron deficiency anemia, unspecified

== ENCOUNTER → 2021-10-28 | Outpatient (CLI) | payer OTHER | LOC: M ADAMS 08:55 | PROVIDERS: ATTEND Physician Assistant Medical | DX: E66.01 Morbid (severe) obesity due to excess calories (principal); E11.65 Type 2 diabetes mellitus with hyperglycemia; E78.1 Pure hyperglyceridemia; D50.9 Iron deficiency anemia, unspecified ==

== ENCOUNTER → 2021-11-09 | Outpatient (REF) | payer OTHER | LOC: M SFHCADAM 08:54 | PROVIDERS: ATTEND Physician Assistant Medical | DX: M35.3 Polymyalgia rheumatica (principal) ==

== ENCOUNTER → 2021-12-23 | Outpatient (REF) | payer OTHER | LOC: M SFHCADAM 07:56 | PROVIDERS: ATTEND Physician Assistant Medical | DX: M35.3 Polymyalgia rheumatica (principal) ==

== ENCOUNTER → 2022-01-19 | Outpatient (REF) | payer OTHER ==
[2022-01-19 20:56] LABS: APPEARANCE, URINE MANUAL CLOUDY (CLEAR); BILIRUBIN, URINE MANUAL NEGATIVE (NEGATIVE); COLOR, URINE MANUAL YELLOW (YELLOW); GLUCOSE, URINE (UA) MANUAL NEGATIVE (NEGATIVE); KETONE, URINE MANUAL NEGATIVE (NEGATIVE); LEUKOCYTE ESTERASE, URINE MAN POSITIVE (NEGATIVE); NITRITE, URINE MANUAL POSITIVE (NEGATIVE); PROTEIN, URINE MANUAL TRACE mg/dL (NEGATIVE); UROBILINOGEN, URINE MANUAL NORMAL (NORMAL)
[2022-01-19 20:57] LABS: BLOOD URINE MANUAL NEGATIVE (NEGATIVE)
[2022-01-19 21:14] LABS: BACTERIA, URINE LARGE AMOUNT; HYALINE CAST, URINE NONE SEEN /lpf (0-1); RBC, URINE 0-1 /hpf (0-3); SQUAMOUS EPITHELIAL CELL URINE SMALL AMOUNT /hpf (SMALL AMT); WBC, URINE TNTC /hpf (0-3)
== END ==
LOC: M SFHCADAM 13:22
PROVIDERS: ATTEND Physician Assistant Medical
DX: M35.3 Polymyalgia rheumatica (principal); R30.0 Dysuria

== ENCOUNTER → 2022-02-10 | Outpatient (REF) | payer OTHER ==
[2022-02-10 13:33] LABS: C REACTIVE PROTEIN QUANTITATIV 0.4 MG/DL (<1.0)
[2022-02-10 13:34] LABS: FERRITIN 122.4 NG/ML (7.3-270.7)
== END ==
LOC: M SFHCADAM 08:03
PROVIDERS: ATTEND Physician Assistant Medical
DX: E11.65 Type 2 diabetes mellitus with hyperglycemia (principal); E55.9 Vitamin D deficiency, unspecified; E78.1 Pure hyperglyceridemia; D50.9 Iron deficiency anemia, unspecified; M35.3 Polymyalgia rheumatica

== ENCOUNTER → 2022-05-03 | Outpatient (REF) | payer OTHER ==
[2022-05-03 14:28] LABS: BASO # 0.1 10^3/uL (0.0-0.2); BASO % 1.2 % (0.0-1.0); EOS # 0.2 10^3/uL (0.0-0.5); EOS % 3.4 % (0.0-3.0); HEMATOCRIT 34.5 % (36.0-47.0); HEMOGLOBIN 10.5 g/dl (12.0-15.5); LYMPH # 1.8 10^3/uL (1.5-5.0); LYMPH % 32.2 % (24.0-44.0); MEAN CORPUSCULAR HEMOGLOBIN 28.3 pg (27.0-33.0); MEAN CORPUSCULAR HGB CONC 30.4 g/dl (32.0-36.5); MONO # 0.5 10^3/uL (0.0-0.8); NEUTROPHILS % 53.5 % (36.0-66.0); PLATELET COUNT, AUTOMATED 223 10^3/uL (150-450); RED BLOOD COUNT 3.71 10^6/uL (4.00-5.40); WHITE BLOOD COUNT 5.7 10^3/uL (4.0-10.0)
[2022-05-03 14:31] LABS: HEMOGLOBIN A1c 8.4 % (4.0-6.0)
[2022-05-03 14:47] LABS: CREATININE, URINE 103.5 MG/DL; MAU/CREAT RATIO 9.6 MCG/MG (0.0-30.0)
[2022-05-03 14:48] LABS: PERCENT SATURATION 22.5 % (13.2-45.0)
[2022-05-03 14:52] LABS: ALBUMIN 3.3 G/DL (3.2-5.2); BILIRUBIN,TOTAL 0.2 MG/DL (0.3-1.2); CALCIUM LEVEL 10.5 MG/DL (8.3-10.6); CHOLESTEROL RISK RATIO 4.3 (<5); CREATININE FOR GFR 1.24 MG/DL (0.55-1.30); FOLATE 14.8 NG/ML (>5.4); HDL CHOLESTEROL 29.7 MG/DL (>40); LDL CHOLESTEROL 40.3 MG/DL (<100); POTASSIUM SERUM 5.4 MMOL/L (3.5-5.1); THYROID STIMULATING HORMONE 2.3 uIU/ML (0.55-4.78); TOTAL PROTEIN 6.5 G/DL (5.7-8.2)
== END ==
LOC: M SFHCADAM 08:29
PROVIDERS: ATTEND Physician Assistant Medical
DX: E11.65 Type 2 diabetes mellitus with hyperglycemia (principal); E55.9 Vitamin D deficiency, unspecified; E78.1 Pure hyperglyceridemia; D50.9 Iron deficiency anemia, unspecified

== ENCOUNTER → 2022-05-10 | Outpatient (CLI) | payer OTHER | LOC: M ADAMS 08:39 | PROVIDERS: ATTEND Physician Assistant Medical | DX: M54.2 Cervicalgia (principal); R20.2 Paresthesia of skin ==

== ENCOUNTER → 2022-05-31 | Outpatient (CLI) | payer OTHER | LOC: M RAD 08:08 | PROVIDERS: ATTEND Physician Assistant Medical | DX: K76.0 Fatty (change of) liver, not elsewhere classified (principal); R16.0 Hepatomegaly, not elsewhere classified ==

== ENCOUNTER → 2022-06-06 | Outpatient (CLI) | payer OTHER | LOC: M RAD 08:20 | PROVIDERS: ATTEND Physician Assistant Medical | DX: Z12.2 Encounter for screening for malignant neoplasm of respiratory organs (principal); F17.211 Nicotine dependence, cigarettes, in remission; R91.8 Other nonspecific abnormal finding of lung field ==

== ENCOUNTER → 2022-07-10 | Outpatient (REF) | payer OTHER | LOC: M SFHCWAGY 10:27 | PROVIDERS: ATTEND Nurse Practitioner Family | DX: Z12.4 Encounter for screening for malignant neoplasm of cervix (principal) | CPT/HCPCS: 87624; G0123 ==

== ENCOUNTER → 2022-07-10 | Outpatient (CLI) | payer OTHER | LOC: M WHC 07:12 | PROVIDERS: ATTEND Nurse Practitioner Family | DX: Z12.31 Encounter for screening mammogram for malignant neoplasm of breast (principal) ==

== ENCOUNTER 2022-10-05 16:12 | Emergency (ER) | payer OTHER ==
[~2022-10-05] VITALS: Ht 167.6 cm; Wt 143.1 kg
[2022-10-05] MEDS ORDERED: KETOROLAC 60MG 2ML VIAL IM ONE (20:50)
[2022-10-05] MEDS ORDERED: LIDOCAINE 5% (LIDODERM) PATCH TD ONE (20:50)
[2022-10-05 22:53] VITALS: BP 143/71; TEMP 97.9; O2SAT 99
[2022-10-05] MEDS ORDERED: ASPE4PAD TOP (22:58)
[2022-10-05] MEDS ORDERED: METH-1165 PO (22:58)
[2022-10-05] MEDS ORDERED: MENT118S2 TP (22:58)
[2022-10-05] MEDS ORDERED: methocarbamoL 750 MG TAB PO ONE (23:05)
== END 2022-10-05 23:05 | disposition home or self-care (01) ==
LOC: M ED 16:12
DX: M25.511 Pain in right shoulder (principal); M54.9 Dorsalgia, unspecified; E11.9 Type 2 diabetes mellitus without complications; G47.33 Obstructive sleep apnea (adult) (pediatric); Z79.82 Long term (current) use of aspirin; Z79.4 Long term (current) use of insulin; Z79.899 Other long term (current) drug therapy; Z88.2 Allergy status to sulfonamides
CPT/HCPCS: 73030; 93971; 96372; 99283; J1885

== ENCOUNTER → 2022-10-09 | Outpatient (CLI) | payer OTHER ==
[~2022-10-09] MED LIST changes: +ASPE4PAD TOP; +MENT118S2 TP; +METH-1165 PO
== END ==
LOC: M PLAIMG 14:07
PROVIDERS: ATTEND Physician Assistant Medical
DX: M54.2 Cervicalgia (principal); M47.812 Spondylosis without myelopathy or radiculopathy, cervical region

== ENCOUNTER → 2022-11-03 | Outpatient (CLI) | payer OTHER ==
[2022-11-03 18:14] LABS: BASO # 0.1 10^3/uL (0.0-0.2); BASO % 1.1 % (0.0-1.0); EOS # 0.2 10^3/uL (0.0-0.5); EOS % 3.2 % (0.0-3.0); HEMATOCRIT 34.3 % (36.0-47.0); HEMOGLOBIN 10.4 g/dl (12.0-15.5); LYMPH # 1.4 10^3/uL (1.5-5.0); LYMPH % 26.2 % (24.0-44.0); MEAN CORPUSCULAR HEMOGLOBIN 28.5 pg (27.0-33.0); MEAN CORPUSCULAR HGB CONC 30.3 g/dl (32.0-36.5); MONO # 0.5 10^3/uL (0.0-0.8); MONO % 9.1 % (2.0-8.0); NEUTROPHILS # 3.2 10^3/uL (1.5-8.5); NEUTROPHILS % 59.5 % (36.0-66.0); PLATELET COUNT, AUTOMATED 181 10^3/uL (150-450); RED BLOOD COUNT 3.65 10^6/uL (4.00-5.40); WHITE BLOOD COUNT 5.3 10^3/uL (4.0-10.0)
[2022-11-03 18:19] LABS: HEMOGLOBIN A1c 12.2 % (4.0-6.0)
[2022-11-03 18:35] LABS: CREATININE, URINE 57.2 MG/DL; MAU/CREAT RATIO 85.6 MCG/MG (0.0-30.0)
[2022-11-03 18:40] LABS: THYROID STIMULATING HORMONE 1.421 uIU/ML (0.55-4.78)
[2022-11-03 18:41] LABS: TOTAL 25(OH) VITAMIN D 22.4 NG/ML (20.0-100.0)
[2022-11-03 18:44] LABS: ALBUMIN 3.2 G/DL (3.2-5.2); BILIRUBIN,TOTAL 0.2 MG/DL (0.3-1.2); CALCIUM LEVEL 9.8 MG/DL (8.3-10.6); CHOLESTEROL RISK RATIO 3.78 (<5); CREATININE FOR GFR 1.1 MG/DL (0.55-1.30); GLOMERULAR FILTRATION RATE 53.9 (>45); HDL CHOLESTEROL 39.6 MG/DL (>40); LDL CHOLESTEROL 45.2 MG/DL (<100); NON-HDL-C 110.4 MG/DL; POTASSIUM SERUM 5.5 MMOL/L (3.5-5.1); TOTAL PROTEIN 6.4 G/DL (5.7-8.2)
== END ==
LOC: M WUC 12:04
PROVIDERS: ATTEND Physician Assistant Medical
DX: E11.65 Type 2 diabetes mellitus with hyperglycemia (principal); D50.9 Iron deficiency anemia, unspecified; K76.0 Fatty (change of) liver, not elsewhere classified; E66.01 Morbid (severe) obesity due to excess calories; E55.9 Vitamin D deficiency, unspecified; E78.1 Pure hyperglyceridemia; Z68.43 Body mass index [BMI] 50.0-59.9, adult

== ENCOUNTER → 2022-12-09 | Outpatient (CLI) | payer OTHER | LOC: M RAD 08:29 | PROVIDERS: ATTEND Physician Assistant | DX: M50.122 Cervical disc disorder at C5-C6 level with radiculopathy (principal); M48.02 Spinal stenosis, cervical region; M50.13 Cervical disc disorder with radiculopathy, cervicothoracic region ==

== ENCOUNTER 2023-01-28 13:05 | Emergency (ER) | payer OTHER ==
[2023-01-28 13:05] VITALS: BP 124/86; TEMP 97.8; O2SAT 98
[2023-01-28] MEDS ORDERED: ACETAMINOPHEN TAB 650MG DOSE (2X325MG) PO ONE (15:25)
[2023-01-28] MEDS ORDERED: IBUPROFEN 600MG TAB PO ONE (15:25)
[2023-01-28] MEDS ORDERED: BENZ200C70 PO (15:25)
== END 2023-01-28 15:54 | disposition home or self-care (01) ==
LOC: M ED 13:05
DX: U07.1 COVID-19 (principal); E11.9 Type 2 diabetes mellitus without complications; I10 Essential (primary) hypertension; G47.33 Obstructive sleep apnea (adult) (pediatric); Z88.2 Allergy status to sulfonamides; Z79.82 Long term (current) use of aspirin; Z79.02 Long term (current) use of antithrombotics/antiplatelets; Z79.811 Long term (current) use of aromatase inhibitors; Z79.4 Long term (current) use of insulin; Z79.899 Other long term (current) drug therapy

== ENCOUNTER 2023-05-07 17:22 | Emergency (ER) | payer OTHER ==
[~2023-05-07 17:22] MED LIST changes: +BENZ200C70 PO
[2023-05-07 18:18] LABS: BASO # 0.1 10^3/uL (0.0-0.2); BASO % 0.7 % (0.0-1.0); EOS # 0.2 10^3/uL (0.0-0.5); EOS % 2.6 % (0.0-3.0); HEMATOCRIT 35.6 % (36.0-47.0); HEMOGLOBIN 11.3 g/dl (12.0-15.5); LYMPH % 35.1 % (24.0-44.0); MEAN CORPUSCULAR HGB CONC 31.7 g/dl (32.0-36.5); MEAN CORPUSCULAR VOLUME 91.3 fl (80.0-96.0); MONO # 0.8 10^3/uL (0.0-0.8); MONO % 9.4 % (2.0-8.0); NEUTROPHILS # 4.4 10^3/uL (1.5-8.5); NEUTROPHILS % 51.6 % (36.0-66.0); PLATELET COUNT, AUTOMATED 214 10^3/uL (150-450); WHITE BLOOD COUNT 8.5 10^3/uL (4.0-10.0)
[2023-05-07 18:48] LABS: ALBUMIN 3.5 G/DL (3.2-5.2); ALKALINE PHOSPHATASE 109 U/L (46-116); ALT/SGPT 33 U/L (7.0-40); AST/SGOT 16 U/L (<34); BILIRUBIN,DIRECT < 0.1 MG/DL (<0.4); BILIRUBIN,TOTAL 0.2 MG/DL (0.3-1.2); BLOOD UREA NITROGEN 32 MG/DL (9-23); CALCIUM LEVEL 10.3 MG/DL (8.3-10.6); CARBON DIOXIDE LEVEL 21 MMOL/L (20-31); CHLORIDE LEVEL 114 MMOL/L (98-107); GLUCOSE, FASTING 70 MG/DL (74-106); POTASSIUM SERUM 5.6 MMOL/L (3.5-5.1); SODIUM LEVEL 140 MMOL/L (136-145); TOTAL PROTEIN 6.7 G/DL (5.7-8.2)
[2023-05-07] MEDS ORDERED: BASA100I (21:47)
[2023-05-07] MEDS ORDERED: LEVO50TA5 PO (21:47)
[2023-05-07] MEDS: cefTRIAXone SOD 1 GM in D5W MINI-BAG PLUS 50 ML IV ONE (22:01)
[2023-05-07] MEDS: NS 1,000 ML IV ONE (22:01)
[2023-05-07] MEDS: PATIROMER SORBITEX CALCIUM 8.4 GM POWDER PACKET (VELTASSA) PO ONE (22:02)
[2023-05-07 23:36] VITALS: BP 108/49; TEMP 98.4; O2SAT 100
[2023-05-07] MEDS ORDERED: CEFD1CAP9 PO (23:43)
== END 2023-05-07 23:52 | disposition home or self-care (01) ==
LOC: M ED 17:22
DX: N39.0 Urinary tract infection, site not specified (principal); E86.0 Dehydration; E87.5 Hyperkalemia; I10 Essential (primary) hypertension; E11.9 Type 2 diabetes mellitus without complications; G47.33 Obstructive sleep apnea (adult) (pediatric); Z88.2 Allergy status to sulfonamides; Z79.82 Long term (current) use of aspirin; Z79.02 Long term (current) use of antithrombotics/antiplatelets; Z79.2 Long term (current) use of antibiotics; Z79.4 Long term (current) use of insulin; Z79.811 Long term (current) use of aromatase inhibitors; Z79.899 Other long term (current) drug therapy
CPT/HCPCS: 80048; 80076; 81001; 85025; 87088; 87186; 93005; 96365; 99284; J0696

== ENCOUNTER → 2023-05-10 | Outpatient (CLI) | payer OTHER ==
[~2023-05-10] MED LIST changes: +BASA100I; +CEFD1CAP9 PO; +LEVO50TA5 PO
[2023-05-10 09:29] LABS: CALCIUM LEVEL 8.8 MG/DL (8.3-10.6); CREATININE FOR GFR 1.16 MG/DL (0.55-1.30); GLOMERULAR FILTRATION RATE 50.6 (>45); POTASSIUM SERUM 5.9 MMOL/L (3.5-5.1)
== END ==
LOC: M LAB 08:21
PROVIDERS: ATTEND Physician Assistant Medical
DX: E78.5 Hyperlipidemia, unspecified (principal)

== ENCOUNTER → 2023-05-31 | Outpatient (REF) | payer OTHER ==
[2023-05-31 13:57] LABS: FERRITIN 63.1 NG/ML (7.3-270.7)
[2023-05-31 14:02] LABS: CALCIUM LEVEL 9.4 MG/DL (8.3-10.6); CREATININE FOR GFR 1.19 MG/DL (0.55-1.30); GLOMERULAR FILTRATION RATE 49.1 (>45)
== END ==
LOC: M SFHCADAM 07:35
PROVIDERS: ATTEND Physician Assistant Medical
DX: I10 Essential (primary) hypertension (principal); E11.65 Type 2 diabetes mellitus with hyperglycemia; E55.9 Vitamin D deficiency, unspecified; E78.1 Pure hyperglyceridemia; D50.9 Iron deficiency anemia, unspecified

== ENCOUNTER → 2023-07-12 | Outpatient (CLI) | payer OTHER | LOC: M WHC 13:35 | PROVIDERS: ATTEND Nurse Practitioner Family | DX: Z12.31 Encounter for screening mammogram for malignant neoplasm of breast (principal) ==

== ENCOUNTER → 2023-08-10 | Outpatient (CLI) | payer OTHER | LOC: M RAD 15:18 | PROVIDERS: ATTEND Physician Assistant Medical | DX: Z12.2 Encounter for screening for malignant neoplasm of respiratory organs (principal); F17.211 Nicotine dependence, cigarettes, in remission ==

== ENCOUNTER 2023-08-20 20:55 | Day surgery (SDC) | payer OTHER ==
[~2023-08-20] VITALS: Ht 167.6 cm; Wt 145.6 kg
[2023-08-20 21:46] LABS: BASO # 0.1 10^3/uL (0.0-0.2); BASO % 0.5 % (0.0-1.0); EOS # 0.3 10^3/uL (0.0-0.5); EOS % 2.1 % (0.0-3.0); HEMATOCRIT 36.7 % (36.0-47.0); HEMOGLOBIN 11.9 g/dl (12.0-15.5); LYMPH # 2.1 10^3/uL (1.5-5.0); LYMPH % 14.2 % (24.0-44.0); MEAN CORPUSCULAR HEMOGLOBIN 27.9 pg (27.0-33.0); MEAN CORPUSCULAR HGB CONC 32.4 g/dl (32.0-36.5); MEAN CORPUSCULAR VOLUME 85.9 fl (80.0-96.0); MONO # 1.1 10^3/uL (0.0-0.8); MONO % 7.4 % (2.0-8.0); NEUTROPHILS # 11.3 10^3/uL (1.5-8.5); NEUTROPHILS % 75.3 % (36.0-66.0); PLATELET COUNT, AUTOMATED 236 10^3/uL (150-450); RED BLOOD COUNT 4.27 10^6/uL (4.00-5.40)
[2023-08-20 22:17] LABS: ALBUMIN 3.3 G/DL (3.2-5.2); BILIRUBIN,DIRECT 0.1 MG/DL (<0.4); BILIRUBIN,TOTAL 0.4 MG/DL (0.3-1.2); CALCIUM LEVEL 9.7 MG/DL (8.3-10.6); CREATININE FOR GFR 1.14 MG/DL (0.55-1.30); GLOMERULAR FILTRATION RATE 51.6 (>45); TOTAL PROTEIN 6.6 G/DL (5.7-8.2)
[2023-08-20] MEDS ORDERED: ISOVUE-370 76% 100ML VIAL As Ordered ONE (23:58)
[2023-08-21] MEDS: NS 500 ML IV ONE (00:32)
[2023-08-21] MEDS: ONDANSETRON 4MG 2ML VIAL IV ONE (00:33)
[2023-08-21] MEDS: KETOROLAC 30 MG/ML 1ML VIAL IV ONE (00:33)
[2023-08-21] MEDS: PIPERACILLIN/TAZOBACTAM SOD 4.5 GM in D5W MINI-BAG PLUS 50 ML IV ONE (03:44)
[2023-08-21] MEDS: MORPHINE 2 MG/ML 1ML VIAL IV ONE (03:53)
[2023-08-21] MEDS ORDERED: LIDOCAINE 2% 100MG/5ML SDV (FOR ANES.) As Ordered ONE (05:08)
[2023-08-21] MEDS ORDERED: fentaNYL 100 MCG/2 ML INJECTION As Ordered ONE (05:08)
[2023-08-21] MEDS ORDERED: ONDANSETRON 4MG 2ML VIAL As Ordered ONE (05:08)
[2023-08-21] MEDS ORDERED: MIDAZOLAM INJ 2MG/2ML VIAL As Ordered ONE (05:08)
[2023-08-21] MEDS ORDERED: ROCURONIUM BROMIDE 50MG/5ML VIAL As Ordered ONE (05:08)
[2023-08-21] MEDS ORDERED: propofoL 200 MG/20 ML VIAL As Ordered ONE (05:08)
[2023-08-21] MEDS ORDERED: SUGAMMADEX SODIUM 500 MG/5 ML VIAL (BRIDION) As Ordered ONE (05:09)
[2023-08-21] MEDS ORDERED: KETOROLAC 60MG 2ML VIAL As Ordered ONE (05:09)
[2023-08-21] MEDS ORDERED: GLUCOSE 4 GM CHEW PO PRN (06:25)
[2023-08-21] MEDS ORDERED: GLUCAGON INJ 1MG VIAL SC PRN (06:25)
[2023-08-21] MEDS ORDERED: diphenhydrAMINE 50MG/ML VIAL IV PRN (06:25)
[2023-08-21] MEDS ORDERED: MEPERIDINE 25 MG/ML 1ML VIAL IV PRN (06:25)
[2023-08-21] MEDS ORDERED: METOCLOPRAMIDE INJ 10MG/2ML VIAL IV PRN (06:25)
[2023-08-21] MEDS ORDERED: DEXTROSE 50% 50ML SYRINGE IV PRN (06:25)
[2023-08-21] MEDS ORDERED: HYDROMORPHONE HCL 0.5 MG/ 0.5 ML SYRINGE IV PRN (06:25)
[2023-08-21] MEDS ORDERED: fentaNYL 100 MCG/2 ML INJECTION IV PRN (06:25)
[2023-08-21] MEDS ORDERED: LR 1,000 ML IV SCH (06:25)
[2023-08-21] MEDS ORDERED: oxyCODONE 5MG TAB PO PRN (06:25)
[2023-08-21] MEDS ORDERED: AUGM500T34 PO (06:29)
[2023-08-21] MEDS: INSULIN LISPRO (NovoLOG) PER UNIT SC PRN ×2 (06:51→07:27)
[2023-08-21] MEDS ORDERED: HYDR-4571 PO (06:59)
[2023-08-21] MEDS: ONDANSETRON 4MG 2ML VIAL IV PRN (07:06)
[2023-08-21 08:25] VITALS: BP 130/61; TEMP 97.9; O2SAT 97
== END 2023-08-21 08:25 | disposition home or self-care (01) ==
LOC: M ED 20:55 → M SDC 20:56 → M ED INP 08-21 03:45 → UNDOADMIN 08-21 03:45 → M SDC 08-21 08:25
PROVIDERS: ATTEND Surgery
DX: K35.890 Other acute appendicitis without perforation or gangrene (principal); E11.9 Type 2 diabetes mellitus without complications; E03.9 Hypothyroidism, unspecified; I10 Essential (primary) hypertension; G47.33 Obstructive sleep apnea (adult) (pediatric); K76.0 Fatty (change of) liver, not elsewhere classified; Z79.84 Long term (current) use of oral hypoglycemic drugs; Z79.82 Long term (current) use of aspirin; Z79.4 Long term (current) use of insulin; Z88.2 Allergy status to sulfonamides
CPT/HCPCS: 44970; 74177; 80048; 80076; 81001; 83690; 85025; 87088; 87186; 88304; 96365; 96375; 99284; J0665; J1100; J1815; J1885; J2250; J2405; J2543; J3010; Q9967

== ENCOUNTER → 2023-10-30 | Outpatient (REF) | payer OTHER ==
[~2023-10-30] MED LIST changes: +AUGM500T34 PO; -BASA100I; +BASA100I SC; +DILT180C28 PO; +HUMA50IN4 SC; +HYDR-4571 PO; +MAGN400T35 PO; +TIRZ10PE SC; +VITA500T40 PO
[2023-10-30 13:40] LABS: HEMATOCRIT 35.4 % (36.0-47.0); MEAN CORPUSCULAR HEMOGLOBIN 27.4 pg (27.0-33.0); MEAN CORPUSCULAR HGB CONC 31.1 g/dl (32.0-36.5); MEAN CORPUSCULAR VOLUME 88.1 fl (80.0-96.0); PLATELET COUNT, AUTOMATED 187 10^3/uL (150-450); RED BLOOD COUNT 4.02 10^6/uL (4.00-5.40); WHITE BLOOD COUNT 6.4 10^3/uL (4.0-10.0)
[2023-10-30 13:45] LABS: BILIRUBIN,TOTAL 0.3 MG/DL (0.3-1.2); CALCIUM LEVEL 9.2 MG/DL (8.3-10.6); CHOLESTEROL RISK RATIO 3.26 (<5); CREATININE FOR GFR 1.06 MG/DL (0.55-1.30); GLOMERULAR FILTRATION RATE 56.1 (>45); PERCENT SATURATION 15.3 % (13.2-45.0); POTASSIUM SERUM 4.6 MMOL/L (3.5-5.1); TOTAL PROTEIN 6.1 G/DL (5.7-8.2)
[2023-10-30 13:48] LABS: FERRITIN 47.8 NG/ML (7.3-270.7)
[2023-10-30 13:49] LABS: THYROID STIMULATING HORMONE 2.616 uIU/ML (0.55-4.78); TOTAL 25(OH) VITAMIN D 31.6 NG/ML (20.0-100.0)
[2023-10-30 13:54] LABS: HEMOGLOBIN A1c 6.7 % (4.0-6.0)
== END ==
LOC: M SFHCADAM 07:14
PROVIDERS: ATTEND Physician Assistant Medical
DX: I10 Essential (primary) hypertension (principal); J30.2 Other seasonal allergic rhinitis; E55.9 Vitamin D deficiency, unspecified; E11.65 Type 2 diabetes mellitus with hyperglycemia; E78.1 Pure hyperglyceridemia; D50.9 Iron deficiency anemia, unspecified; E03.9 Hypothyroidism, unspecified

== ENCOUNTER 2023-10-31 06:58 | Day surgery (SDC) | payer OTHER ==
[~2023-10-31] VITALS: Ht 167.6 cm; Wt 145.1 kg
[~2023-10-31 06:58] MED LIST changes: +NS 1,000 ML IV ONE
[2023-10-31] MEDS ORDERED: propofoL 200 MG/20 ML VIAL As Ordered ONE (08:16)
[2023-10-31 08:33] VITALS: TEMP 98.9
[2023-10-31 08:50] VITALS: BP 162/69; O2SAT 98
== END 2023-10-31 08:55 | disposition home or self-care (01) ==
LOC: M OPP 06:58
PROVIDERS: ATTEND Surgery
DX: Z12.11 Encounter for screening for malignant neoplasm of colon (principal); K64.0 First degree hemorrhoids; E11.9 Type 2 diabetes mellitus without complications; I10 Essential (primary) hypertension; E03.9 Hypothyroidism, unspecified; G47.33 Obstructive sleep apnea (adult) (pediatric); Z99.89 Dependence on other enabling machines and devices; Z87.891 Personal history of nicotine dependence; Z79.02 Long term (current) use of antithrombotics/antiplatelets; Z79.1 Long term (current) use of non-steroidal anti-inflammatories (NSAID); Z79.4 Long term (current) use of insulin; Z79.82 Long term (current) use of aspirin; Z79.890 Hormone replacement therapy; Z79.899 Other long term (current) drug therapy; Z88.2 Allergy status to sulfonamides

== ENCOUNTER → 2024-05-01 | Outpatient (REF) | payer OTHER ==
[~2024-05-01] MED LIST changes: -NS 1,000 ML IV ONE
[2024-05-01 15:07] LABS: BASO # 0.1 10^3/uL (0.0-0.2); BASO % 0.6 % (0.0-1.0); EOS # 0.2 10^3/uL (0.0-0.5); EOS % 3.1 % (0.0-3.0); HEMOGLOBIN 11.1 g/dl (12.0-15.5); LYMPH # 1.6 10^3/uL (1.5-5.0); LYMPH % 20.8 % (24.0-44.0); MEAN CORPUSCULAR HEMOGLOBIN 27.3 pg (27.0-33.0); MEAN CORPUSCULAR HGB CONC 30.8 g/dl (32.0-36.5); MEAN CORPUSCULAR VOLUME 88.7 fl (80.0-96.0); MONO # 0.6 10^3/uL (0.0-0.8); MONO % 7.5 % (2.0-8.0); NEUTROPHILS # 5.2 10^3/uL (1.5-8.5); NEUTROPHILS % 67.6 % (36.0-66.0); PLATELET COUNT, AUTOMATED 228 10^3/uL (150-450); RED BLOOD COUNT 4.06 10^6/uL (4.00-5.40); WHITE BLOOD COUNT 7.7 10^3/uL (4.0-10.0)
[2024-05-01 15:15] LABS: FERRITIN 51.3 NG/ML (7.3-270.7); THYROID STIMULATING HORMONE 3.611 uIU/ML (0.55-4.78)
[2024-05-01 15:17] LABS: TOTAL 25(OH) VITAMIN D 43.2 NG/ML (20.0-100.0)
[2024-05-01 15:18] LABS: ALBUMIN 3.1 G/DL (3.2-5.2); BILIRUBIN,TOTAL 0.3 MG/DL (0.3-1.2); CALCIUM LEVEL 9.1 MG/DL (8.3-10.6); CHOLESTEROL RISK RATIO 3.37 (<5); CREATININE FOR GFR 1.2 MG/DL (0.55-1.30); GLOMERULAR FILTRATION RATE 48.5 (>45); LDL CHOLESTEROL 44.2 MG/DL (<100); PERCENT SATURATION 12.4 % (13.2-45.0); POTASSIUM SERUM 4.2 MMOL/L (3.5-5.1); TOTAL PROTEIN 6.4 G/DL (5.7-8.2)
== END ==
LOC: M SFHCADAM 07:35
PROVIDERS: ATTEND Physician Assistant Medical
DX: I10 Essential (primary) hypertension (principal); E55.9 Vitamin D deficiency, unspecified; E11.65 Type 2 diabetes mellitus with hyperglycemia; E78.1 Pure hyperglyceridemia; D50.9 Iron deficiency anemia, unspecified

== ENCOUNTER → 2024-09-23 | Outpatient (CLI) | payer OTHER | LOC: M RAD 16:48 | PROVIDERS: ATTEND Physician Assistant Medical | DX: J47.9 Bronchiectasis, uncomplicated (principal); R91.8 Other nonspecific abnormal finding of lung field; F17.211 Nicotine dependence, cigarettes, in remission ==

== ENCOUNTER 2024-10-22 06:57 | Day surgery (SDC) | payer OTHER ==
[~2024-10-22] VITALS: Ht 165.1 cm; Wt 128.1 kg
[~2024-10-22 06:57] MED LIST changes: +ECOT81TA5 PO
[2024-10-22] MEDS ORDERED: LIDOCAINE 2% 100 MG/5 ML SDV (FOR ANES.) As Ordered ONE (08:23)
[2024-10-22 08:40] VITALS: TEMP 98.9
[2024-10-22 08:53] VITALS: BP 134/66; O2SAT 100
== END 2024-10-22 09:01 | disposition home or self-care (01) ==
LOC: M OPP 06:57
PROVIDERS: ATTEND Internal Medicine Gastroenterology
DX: Z53.09 Procedure and treatment not carried out because of other contraindication (principal)
CPT/HCPCS: 43235; J3010

== ENCOUNTER → 2024-11-07 | Outpatient (REF) | payer OTHER ==
[2024-11-07 14:11] LABS: BASO # 0.1 10^3/uL (0.0-0.2); BASO % 1.1 % (0.0-1.0); EOS # 0.3 10^3/uL (0.0-0.5); EOS % 5.1 % (0.0-3.0); LYMPH # 1.6 10^3/uL (1.5-5.0); LYMPH % 25.2 % (24.0-44.0); MONO # 0.6 10^3/uL (0.0-0.8); MONO % 9.7 % (2.0-8.0); NEUTROPHILS # 3.7 10^3/uL (1.5-8.5); NEUTROPHILS % 58.4 % (36.0-66.0); PLATELET COUNT, AUTOMATED 204 10^3/uL (150-450)
[2024-11-07 14:16] LABS: CHOLESTEROL LEVEL 99.0 MG/DL (<200); CHOLESTEROL RISK RATIO 3.26 (<5); LDL CHOLESTEROL 38.5 MG/DL (<100); NON-HDL-C 68.7 MG/DL; TRIGLYCERIDES LEVEL 151.0 MG/DL (<150)
[2024-11-07 14:18] LABS: TOTAL 25(OH) VITAMIN D 50.0 NG/ML (20.0-100.0)
[2024-11-07 14:19] LABS: FREE T4 1.15 NG/DL (0.89-1.76)
== END ==
LOC: M SFHCADAM 07:23
PROVIDERS: ATTEND Physician Assistant Medical
DX: E11.65 Type 2 diabetes mellitus with hyperglycemia (principal); E55.9 Vitamin D deficiency, unspecified; E78.1 Pure hyperglyceridemia; D50.9 Iron deficiency anemia, unspecified; E03.9 Hypothyroidism, unspecified

== ENCOUNTER → 2024-11-20 | Outpatient (CLI) | payer OTHER | LOC: M WHC 16:07 | PROVIDERS: ATTEND Nurse Practitioner Family | DX: Z12.31 Encounter for screening mammogram for malignant neoplasm of breast (principal) ==

== ENCOUNTER 2024-12-15 07:38 | Day surgery (SDC) | payer OTHER ==
[~2024-12-15] VITALS: Ht 165.1 cm; Wt 124.3 kg
[2024-12-15 09:34] VITALS: TEMP 96.8
[2024-12-15 09:58] VITALS: BP 156/57; O2SAT 100
== END 2024-12-15 10:05 | disposition home or self-care (01) ==
LOC: M OPP 07:38
PROVIDERS: ATTEND Internal Medicine Gastroenterology
DX: D50.9 Iron deficiency anemia, unspecified (principal); K31.89 Other diseases of stomach and duodenum; G47.30 Sleep apnea, unspecified; Z79.4 Long term (current) use of insulin; Z79.82 Long term (current) use of aspirin; Z79.84 Long term (current) use of oral hypoglycemic drugs; Z79.85 Long-term (current) use of injectable non-insulin antidiabetic drugs; Z79.899 Other long term (current) drug therapy; Z87.891 Personal history of nicotine dependence

== ENCOUNTER → 2025-01-06 | Outpatient (CLI) | payer OTHER ==
[2025-01-06 07:48] LABS: BASO # 0.1 10^3/uL (0.0-0.2); BASO % 0.9 % (0.0-1.0); EOS # 0.2 10^3/uL (0.0-0.5); EOS % 3.4 % (0.0-3.0); LYMPH # 1.8 10^3/uL (1.5-5.0); LYMPH % 27.1 % (24.0-44.0); MONO # 0.7 10^3/uL (0.0-0.8); MONO % 10.9 % (2.0-8.0); NEUTROPHILS # 3.8 10^3/uL (1.5-8.5); NEUTROPHILS % 57.1 % (36.0-66.0); PLATELET COUNT, AUTOMATED 208 10^3/uL (150-450)
[2025-01-06 08:22] LABS: ALT/SGPT 27.0 U/L (7.0-40); AST/SGOT 27.0 U/L (<34); CALCIUM LEVEL 8.7 MG/DL (8.3-10.6); CARBON DIOXIDE LEVEL 29.0 MMOL/L (20-31); CHLORIDE LEVEL 102.0 MMOL/L (98-107); CREATININE FOR GFR 1.24 MG/DL (0.55-1.30); GLOMERULAR FILTRATION RATE 49.2 (>45); IRON (FE) 47.0 UG/DL (50-170); PERCENT SATURATION 18.6 % (13.2-45.0); POTASSIUM SERUM 4.2 MMOL/L (3.5-5.1); SODIUM LEVEL 141.0 MMOL/L (136-145)
== END ==
LOC: M LAB 07:07
PROVIDERS: ATTEND Internal Medicine Medical Oncology
DX: D50.9 Iron deficiency anemia, unspecified (principal)